=== PATIENT | male | born 1975 | race Caucasian/White ===

== ENCOUNTER 2024-07-13 18:29 | Emergency (ER) | payer OTHER, SELFPAY ==
[2024-07-13 18:34] VITALS: BP 168/99
[2024-07-13 18:57] LABS: % Basophils 0.8 % (0-2); % Eosinophils 0.1 % (0-6); % Immature Granulocytes 0.4 % (0-0.5); % Lymphocytes 3.7 % (20.5-51.1); Absolute Basophils 0.1 10^3/uL (0-0.2); Absolute Lymphocytes 0.3 10^3/uL (1.2-3.4); Absolute Monocytes 0.6 10^3/uL (0.1-0.6); Absolute Neutrophils 6.4 10^3/uL (1.4-6.5); Hematocrit 41.3 % (39.0-52.0); Hemoglobin 13.7 g/dL (13.0-18.0); Mean Corp Hgb Conc. 33.2 g/dL (33.0-37.0); Mean Corpuscular Hgb 27.9 pg (27.0-31.0); Mean Corpuscular Volume 84.1 fL (80.0-94.0); Mean Platelet Volume 9.6 fL (7.4-10.4); Nucleated Red Blood Cells % 0 % (-); Platelet Count 201 10^3/uL (130-400); Red Blood Cell Count 4.91 10^6/uL (4.70-6.10); Red Cell Dist. Width 12.4 % (11.5-14.5); White Blood Cell Count 7.3 10^3/uL (4.8-10.8)
[2024-07-13 19:10] LABS: ALT (SGPT) 23 U/L (0-50); AST (SGOT) 22 U/L (17-59); Albumin 4.6 g/dl (3.5-5.0); Alkaline Phosphatase 85 U/L (38-126); Blood Urea Nitrogen 12 mg/dl (9-20); Calcium 9.3 mg/dl (8.4-10.2); Carbon Dioxide 26 mmol/L (22-30); Chloride 100 mmol/L (98-107); Glucose 137 mg/dl (70-99); Potassium 3.9 mmol/L (3.5-5.1); Sodium 134 mmol/L (135-145); Total Bilirubin 0.5 mg/dl (0.2-1.3); Total Protein 7.4 g/dl (6.3-8.2); eGFR > 60.00
[2024-07-13 21:22] VITALS: BP 143/91
[2024-07-13 21:27] VITALS: BMI 22.4
--- NOTE | 2024-07-13 21:45 | ED.GENMED ---
History of Present Illness
General
Chief Complaint: Headache
Source: patient
Exam Limitations: none
Time Seen by Provider: 07/13/24 21:39
History of Present Illness
History of Present Illness:
See MDM
Past History
Past History
ED Past Medical History: HTN and Other (migraine)
ED Past Surgical History: None
Social History
Tobacco: Non-smoker
Alcohol: None
Phy Exam
Physical Exam
Physical Exam:
See MDM
Course
Orders/Labs/Results
Orders:
Orders
07/13/24 18:45
CMP [Comprehensive Metabolic Panel] Urgent
Complete Blood Count/With Diff Urgent
07/13/24 21:43
Diphenhydramine [Benadryl] 25 mg IV NOW STA
Ketorolac [Toradol] 30 mg IV NOW STA
Metoclopramide [Reglan] 10 mg IV NOW STA
07/13/24 21:44
CT Head W/o Iv Contrast Urgent
Comment:
Reason For Exam: persistent headache
07/13/24 22:06
0.9% Sodium Chloride 1000 ml [Nss] 1,000 ml IV BOLUS
07/13/24 22:15
0.9% Sodium Chloride 1000 ml [Nss] 1,000 ml IV BOLUS
07/13/24 22:47
Butalb/Acetaminophen/Caffeine [Fioricet] 1 tab PO NOW STA
Abnormal Lab Results
07/13/24
18:45
Absolute Lymphs (auto) 0.3 L 10^3/uL
(1.2-3.4)
Neutrophils % 87.0 H %
(42.2-75.2)
Lymphocytes % 3.7 L %
(20.5-51.1)
Sodium 134 L mmol/L
(135-145)
Glucose 137 H mg/dl
(70-99)
07/13/24 18:45
07/13/24 18:45
Vital Signs
Initial and Last Documented VS:
Initial Vital Signs
Temp Pulse Resp BP Pulse Ox
98.8 F 96 18 168/99 99
07/13/24 18:34 07/13/24 18:34 07/13/24 18:34 07/13/24 18:34 07/13/24 18:34
Last Documented Vital Signs
Temp Pulse Resp BP Pulse Ox
98.8 F 98 23 136/91 97
07/13/24 18:34 07/13/24 22:15 07/13/24 22:15 07/13/24 22:00 07/13/24 22:15
MDM/Problems Addressed
Differential Diagnosis Includes:
HPI and MDM Narrative:
48-year-old male presenting to the emergency department with persistent headache. Patient states he has a history of migraines and was taking ibuprofen today without relief. Patient does have a prescription for sumatriptan hand but he did not take
it because he does not like the side effects. He denies prior images of his brain before. He does complain of photophobia and phonophobia.
Given his uncontrolled migraine, will give IV fluids, IV Toradol, IV Reglan and IV Benadryl
Physical exam
General: Well appearing and non-toxic
HEENT: protecting airway. Pupils equal and reactive
Neck: appears supple
CV: No evidence of cyanosis
Resp: No accessory muscle use
Abd: Non-distended
Extremities: No deformities
Neuro: alert. No focal deficits
Psych: Normal affect
Skin: Intact
Problems Addressed including Acute and Chronic Conditions affecting care:
1. Migraine
Acuity: acute
Prognosis: stable
Details: Given persistent symptoms patient given Toradol, Reglan Benadryl. Will continue to reassess.
Updates
On reassessment after meds, patient is feeling much better. Will give dose of Fioricet
Differential Diagnosis (but not limited to): Migraine, tension headache, intracranial hemorrhage
Testing considered: EKG
Drug therapy (if applicable): OTC meds, please see d/c instruction regarding Rx drugs
Amount and/or Complexity of Data Reviewed
Clinical info obtained from: Patient
External data reviewed: N/A
Labs I independently reviewed (but not limited to): Mild hyperglycemia
Radiology: The CT scan was personally and independently reviewed. In addition, official CT report reviewed.
Pulse Ox: not hypoxic
EKG independently reviewed: N/A
Silviculture Professor: N/A
Critical Care: N/A
Risk of Complication:
Social Determinants of health: Good social support
Discussed with other providers: N/A
Escalation of Care includes Admit/Obs: After being observed in the Emergency Department, pt stable for discharge.
Occasional wrong word or 'sound a like' substitutions may have occurred due to the inherent limitations of voice recognition software. Read the chart carefully and recognize, using context, where substitutions have occurred.
*Critical Care Note
Total Time (30-74mins, 75-104mins- exclusive of procedures): Not Applicable
ED Attending Note
-
Portions of this chart may have been created with voice recognition software.� Occasional wrong word or��sound alike� substitutions may have occurred due to the inherent limitations of voice recognition software.
Discharge Plan
Departure
Patient Disposition: Home (Routine Discharge)
Date of Disposition: 07/13/24
Time of Disposition: 23:08
Patient with high blood pressure during this ER visit?: No
Discharge Problem:
Migraine
Instructions: Migraines (DC)
Prescriptions:
New
[id number] [Fioricet] 50-300-40 mg capsule
1 cap PO Q8H PRN (Reason: Headache) Qty: 10 0RF
Referrals:
Partem,Pau Joleen, MD [Family Provider] -
Activity Restrictions/Additional Instructions:
Please return for any worsening symptoms.
You may return at any time if you have further concerns.
Please follow up with your doctor at the first available appointment, preferably this week.
Thank you for choosing [facility].
Interventions
Interventions:
*Risk Screen - Suicide Last Done: 07/13/24 18:34
*General Assessment Last Done: 07/13/24 18:34
ED- Fall Risk Assessment Last Done: 07/13/24 21:27
*ED COVID-19 Vaccine History Last Done: 07/13/24 18:34
ED- Neurological Assessment Last Done: 07/13/24 21:27
Discharge Date and Time
Print Language: CZECH
[2024-07-13 22:00] VITALS: BP 136/91
[2024-07-13] MEDS: BENADRYL 25 MG IV (22:13)
[2024-07-13] MEDS: NSS 1000 IV (22:17)
[2024-07-13] MEDS: TORADOL 30 MG IV (22:17)
[2024-07-13] MEDS: REGLAN 10 MG IV (22:18)
[2024-07-13 23:00] VITALS: BP 122/77
[2024-07-13] MEDS: FIORICET 1 TAB PO (23:04)
[2024-07-13 23:26] VITALS: BP 119/68
[2024-07-13 23:42] VITALS: BP 119/68
== END 2024-07-13 23:46 | disposition home or self-care (01) ==
LOC: EMR 18:29
PROVIDERS: EMERGENCY PHYSICIAN Student in an Organized Health Care Education/Training Program; FAMILY PHYSICIAN Family Medicine
DX: G43.909 Migraine, unspecified, not intractable, without status migrainosus (principal); I10 Essential (primary) hypertension
CPT/HCPCS: 96374; 96375; 96361; 99284; 70450; 80053; 85025